=== PATIENT | female | born 1995 | race Two or more races ===

== ENCOUNTER 2023-06-12 09:10 | Emergency (ER) | payer MEDICAID ==
[~2023-06-12] VITALS: Ht 165.1 cm; Wt 78.5 kg
[2023-06-12 09:20] VITALS: BP 114/77; PULSE 91; RESP 20; TEMP 98.1; O2SAT 97
[2023-06-12] MEDS ORDERED: KETOROLAC TROMETH 30 MG/ML 1ML VIAL IM ONE (14:30)
[2023-06-12] MEDS ORDERED: ACETAMINOPHEN 500 MG TAB PO ONE (14:30)
== END 2023-06-12 17:32 | disposition home or self-care (01) ==
LOC: ER 09:10
DX: S93.601A Unspecified sprain of right foot, initial encounter (principal); W22.8XXA Striking against or struck by other objects, initial encounter; Y93.89 Activity, other specified; Y92.89 Other specified places as the place of occurrence of the external cause; Y99.8 Other external cause status
CPT/HCPCS: 73620; 96372; 99283; J1885